=== PATIENT | female | born 1950 | race Caucasian/White ===

== ENCOUNTER 2018-03-26 08:19 | Inpatient (IN) | payer OTHER, MEDICAID ==
[~2018-03-26] VITALS: Ht 167.6 cm; Wt 97.1 kg
[2018-03-26 08:19] VITALS: BP_SYST 88
[2018-03-26] MEDS ORDERED: KETOROLAC TROMETHAMINE 30 MG VIAL IVP ONE (08:45)
[2018-03-26] MEDS ORDERED: NACL 0.9% 1,000 ML IV ONE (08:45)
[2018-03-26] MEDS ORDERED: ONDANSETRON HCL 4 MG/2 ML VIAL IVP ONE (08:45)
[2018-03-26 09:21] LABS: BASOPHILS # (AUTO) 0.1 K/uL (0.0-0.2); BASOPHILS % (AUTO) 0.6 % (0.0-2.0); EOSINOPHILS # (AUTO) 0.3 K/uL (0.0-0.4); HEMATOCRIT 32.7 % (36-48); HEMOGLOBIN 11.2 g/dL (12.0-16.0); LYMPHOCYTES # (AUTO) 1.5 K/uL (1.0-5.5); LYMPHOCYTES % (AUTO) 17.4 % (20.5-51.5); MEAN CORPUSCULAR HEMOGLOBIN 32 pg (27-31); MEAN CORPUSCULAR HGB CONC 34 % (32-36); MEAN CORPUSCULAR VOLUME 93 fL (79.0-98.0); MONOCYTES # (AUTO) 0.4 K/uL (0.0-1.0); MONOCYTES % (AUTO) 4.5 % (1.7-9.3); NEUTROPHILS # (AUTO) 6.2 K/uL (1.8-7.7); NEUTROPHILS % (AUTO) 74.5 % (40.0-70.0); PLATELET COUNT (AUTO) 179 K/uL (130-430); RED BLOOD CELL COUNT(AUTO) 3.52 MIL/uL (4.2-6.2); RED CELL DISTRIBUTION WIDTH 13.2 % (9.0-15.0); WHITE BLOOD COUNT (AUTO) 8.5 K/uL (4.8-10.8)
[2018-03-26 09:25] LABS: CALCIUM 8.1 mg/dL (8.4-11.0); CREATININE 1.28 mg/dL (0.55-1.30); POTASSIUM 4.5 mmol/L (3.5-5.1)
[2018-03-26 09:30] LABS: ALBUMIN 3.1 g/dL (3.4-4.8); TOTAL BILIRUBIN 0.3 mg/dL (0.0-1.0)
[2018-03-26 09:46] LABS: BILIRUBIN,URINE NEGATIVE (NEGATIVE); CLARITY/URINE HAZY (CLEAR); COLOR,URINE YELLOW (YELLOW); GLUCOSE,URINE NEGATIVE (NEGATIVE); KETONES,URINE NEGATIVE (NEGATIVE); LEUKOCYTE ESTERASE ,URINE 3+ (NEGATIVE); NITRITE, URINE POSITIVE (NEGATIVE); PROTEIN URINE NEGATIVE (NEGATIVE); UROBILINOGEN,URINE 0.2 (0.2-1.0)
[2018-03-26 09:47] LABS: BLOOD, URINE TRACE (NEGATIVE)
[2018-03-26 09:54] LABS: BACTERIA,URINE MODERATE /HPF (None Seen); RBC,URINE 0-3 /HPF (0-3); WBC,URINE 80-100 /HPF (0-3)
[2018-03-26 09:55] LABS: MUCUS,URINE None Seen /LPF (None Seen)
[2018-03-26] MEDS ORDERED: NS 500 ML IV ONE (10:30)
[2018-03-26] MEDS ORDERED: GABA-531 PO (12:07)
[2018-03-26] MEDS ORDERED: ASA81 PO (12:07)
[2018-03-26] MEDS ORDERED: SITA100T11 PO (12:07)
[2018-03-26] MEDS ORDERED: LISI-600 PO (12:07)
[2018-03-26 12:47] VITALS: BP_SYST 101
[2018-03-26 14:55] VITALS: BP_SYST 108
[2018-03-26] MEDS ORDERED: DEXTROSE 50% JECT 50 ML DISP.SYRIN IVP PRN (16:15)
[2018-03-26] MEDS ORDERED: INSULIN REGULAR, HUMAN 100 UNITS/ML, 10 ML VIAL (novoLIN R) SUBCUT PRN (16:15)
[2018-03-26] MEDS ORDERED: cefTRIAXone 1 GM IVPB PREMIX 50 ML IV SCH (17:00)
[2018-03-26] MEDS: NACL 0.9% 1,000 ML IV SCH (17:34)
[2018-03-26 20:00] VITALS: BP_SYST 119
[2018-03-26 23:37] VITALS: BP_SYST 128
[2018-03-27 07:32] VITALS: BP_SYST 128
[2018-03-27] MEDS ORDERED: ASPIRIN 81 MG TAB.CHEW PO SCH (09:00)
[2018-03-27] MEDS: NACL 0.9% 1,000 ML IV SCH (10:51)
[2018-03-27] MEDS ORDERED: CEPH-568 PO (10:56)
[2018-03-27] MEDS ORDERED: MAGNESIUM CITRATE 300 ML ORAL SOLUTION PO ONE (11:00)
[2018-03-27 13:00] VITALS: BP_SYST 116
[2018-03-27 13:51] VITALS: BP_SYST 116
== END 2018-03-27 14:50 | disposition home or self-care (01) | DRG 315 ==
LOC: SED 08:19 → STU 12:03
PROVIDERS: ADMIT Internal Medicine Hospice and Palliative Medicine; ATTEND Internal Medicine Hospice and Palliative Medicine
DX: I95.9 Hypotension, unspecified (principal); N39.0 Urinary tract infection, site not specified; W18.30XA Fall on same level, unspecified, initial encounter; E11.9 Type 2 diabetes mellitus without complications; M17.0 Bilateral primary osteoarthritis of knee; E86.0 Dehydration; I10 Essential (primary) hypertension; Z98.891 History of uterine scar from previous surgery; Z88.8 Allergy status to other drugs, medicaments and biological substances; Y93.E1 Activity, personal bathing and showering; Y92.89 Other specified places as the place of occurrence of the external cause; Y99.8 Other external cause status; Z91.041 Radiographic dye allergy status; Z79.82 Long term (current) use of aspirin; Z79.899 Other long term (current) drug therapy; Z82.49 Family history of ischemic heart disease and other diseases of the circulatory system; Z83.3 Family history of diabetes mellitus
CPT/HCPCS: 36415; 71045; 80053; 81000-TC; 82962; 83605; 83880; 84484; 85025; 87040-TC; 87086; 87186-TC; 93005; 93306; 96361; 96365; 96366; 96375; 99285; J0696; J1815; J1885; J1956; J2405; J7030